=== PATIENT | male | born 1950 | race Caucasian/White ===

== ENCOUNTER 2019-05-18 14:02 | Emergency (ER) | payer MEDICARE, MEDICAID ==
[~2019-05-18] VITALS: Ht 177.8 cm; Wt 75.0 kg
[~2019-05-18 14:02] MED LIST: CARCD120C PO; DIAZ-351 PO; METO50TA17 PO
[2019-05-18 15:47] VITALS: BP 124/78
== END 2019-05-18 15:28 | disposition home or self-care (01) ==
LOC: ER 14:02
DX: S61.211A Laceration without foreign body of left index finger without damage to nail, initial encounter (principal); E78.00 Pure hypercholesterolemia, unspecified; I10 Essential (primary) hypertension; K21.9 Gastro-esophageal reflux disease without esophagitis; M19.90 Unspecified osteoarthritis, unspecified site; G89.29 Other chronic pain; Z98.890 Other specified postprocedural states; Z56.0 Unemployment, unspecified; Z79.899 Other long term (current) drug therapy; W26.8XXA Contact with other sharp object(s), not elsewhere classified, initial encounter; Y93.89 Activity, other specified; Y92.89 Other specified places as the place of occurrence of the external cause; Y99.8 Other external cause status
CPT/HCPCS: 73140; 99283

== ENCOUNTER 2020-02-15 19:29 | Emergency (ER) | payer MEDICARE, MEDICAID ==
[~2020-02-15] VITALS: Ht 177.8 cm; Wt 75.2 kg
[2020-02-15 20:21] LABS: ALANINE AMINOTRANSFERASE 45 U/L (12-78); ALBUMIN 3.8 G/DL (3.4-5.0); ALBUMIN/GLOBULIN RATIO 1.2 (1.1-1.5); ALKALINE PHOSPHATASE 79 IU/L (46-116); ANION GAP 12 (8-16); ASPARTATE AMINO TRANSFERASE 20 U/L (10-37); BILIRUBIN,TOTAL 0.2 MG/DL (0.1-1.0); BLOOD UREA NITROGEN 19 MG/DL (7-18); CALCIUM 8.9 MG/DL (8.5-10.1); CHLORIDE 109 MMOL/L (99-107); CREATININE 1.19 MG/DL (0.60-1.10); GLUCOSE 98 MG/DL (70-104); LIPASE 100 U/L (73-393); POTASSIUM 4.3 MMOL/L (3.5-5.1); SODIUM 143 MMOL/L (135-145); TOTAL CARBON DIOXIDE 21.8 MMOL/L (24-32); eGFR 61 ML/MIN
[2020-02-15 20:27] LABS: BASOPHILS % (AUTO) 0.6 % (0-1); EOSINOPHILS # (AUTO) 0.1 X10'3 (0-0.9); EOSINOPHILS % (AUTO) 1.7 % (0-6); HEMATOCRIT 44.7 % (42.0-52.0); HEMOGLOBIN 15.2 g/dl (14.0-17.9); LYMPHOCYTES # (AUTO) 1.4 X10'3 (1.1-4.8); LYMPHOCYTES % (AUTO) 17.7 % (21-51); MEAN CORPUSCULAR HEMOGLOBIN 32.6 PG (27.0-31.0); MEAN CORPUSCULAR HGB CONC 33.9 g/dL (33.0-36.5); MEAN CORPUSCULAR VOLUME 96.2 FL (78-98); MEAN PLATELET VOLUME 8.8 FL (7.4-10.4); MONOCYTES # (AUTO) 0.6 X10'3 (0-0.9); MONOCYTES % (AUTO) 8.2 % (2-12); NEUTROPHILS # (AUTO) 5.6 X10'3 (1.8-7.7); NEUTROPHILS % (AUTO) 71.8 % (42-75); PLATELET COUNT 339 X10'3 (140-440); RED BLOOD COUNT 4.65 X10'6 (4.70-6.10); WHITE BLOOD COUNT 7.7 X10'3 (4.5-11.0)
[2020-02-15 20:28] LABS: CLARITY,URINE CLEAR (Clear); COLOR,URINE YELLOW (Yellow); GLUCOSE, URINE NEGATIVE (Neg); KETONES,URINE NEGATIVE (Neg); LEUKOCYTE ESTERASE ,URINE NEGATIVE (Neg); NITRITES, URINE NEGATIVE (Neg); OCCULT BLOOD,URINE NEGATIVE (Neg); PH,URINE 5.5 (4.8-8.0); PROTEIN,URINE NEGATIVE (Neg); UROBILINOGEN,URINE 0.2 E.U/dL (0.2-1.0)
[2020-02-15 20:31] LABS: UA COLLECTION TYPE CLN CATCH MIDSTREAM
[2020-02-15] MEDS ORDERED: orphenadrine citrate 60mg/2ml inj. IM ONE (21:15)
[2020-02-15] MEDS ORDERED: ketorolac tromethamine 15mg/ml inj. IM ONE (21:15)
[2020-02-15] MEDS ORDERED: IBUP-1984 PO (21:18)
[2020-02-15] MEDS ORDERED: ORPH100T2 PO (21:18)
[2020-02-15 21:25] VITALS: BP 149/93
== END 2020-02-15 21:26 | disposition home or self-care (01) ==
LOC: ER 19:30
DX: M54.5 Low back pain (principal); R06.02 Shortness of breath; R10.9 Unspecified abdominal pain; E78.00 Pure hypercholesterolemia, unspecified; I10 Essential (primary) hypertension; K21.9 Gastro-esophageal reflux disease without esophagitis; M19.90 Unspecified osteoarthritis, unspecified site; G89.29 Other chronic pain; Z98.890 Other specified postprocedural states; Z56.0 Unemployment, unspecified; Z79.899 Other long term (current) drug therapy
CPT/HCPCS: 36415; 74176; 80053; 81003; 83690; 85025; 96372; 99284; J1885; J2360

== ENCOUNTER 2021-01-17 17:10 | Emergency (ER) | payer MEDICARE, MEDICAID ==
[~2021-01-17] VITALS: Ht 177.8 cm; Wt 72.7 kg
[~2021-01-17 17:10] MED LIST changes: +ORPH100T2 PO
[2021-01-17 17:39] VITALS: BP 143/87
[2021-01-17] MEDS ORDERED: AZIT-63 PO (19:33)
== END 2021-01-17 21:16 | disposition home or self-care (01) ==
LOC: ER 17:11
DX: B34.9 Viral infection, unspecified (principal); Z20.822 Contact with and (suspected) exposure to COVID-19; E78.00 Pure hypercholesterolemia, unspecified; I10 Essential (primary) hypertension; K21.9 Gastro-esophageal reflux disease without esophagitis; M19.90 Unspecified osteoarthritis, unspecified site; G89.29 Other chronic pain; Z98.890 Other specified postprocedural states; Z56.0 Unemployment, unspecified; Z79.2 Long term (current) use of antibiotics; Z79.899 Other long term (current) drug therapy
CPT/HCPCS: 36415; 71045; 99284; U0003; U0005

== ENCOUNTER 2021-05-18 16:38 | Emergency (ER) | payer MEDICARE, MEDICAID ==
[~2021-05-18] VITALS: Ht 177.8 cm; Wt 72.7 kg
[2021-05-18 17:01] VITALS: BP 121/84
[2021-05-18] MEDS ORDERED: HYDROcodone/acetaminophen 5mg/325mg tablet PO ONE (17:10)
[2021-05-18] MEDS ORDERED: ondansetron 4mg rapidly disintigrating tab PO ONE (17:10)
[2021-05-18] MEDS ORDERED: ONDA4TAB6 PO (18:02)
[2021-05-18] MEDS ORDERED: HYDR-3965 PO (18:02)
== END 2021-05-18 18:27 | disposition home or self-care (01) ==
LOC: ER 16:39
DX: S20.211A Contusion of right front wall of thorax, initial encounter (principal); E78.00 Pure hypercholesterolemia, unspecified; I10 Essential (primary) hypertension; K21.9 Gastro-esophageal reflux disease without esophagitis; M19.90 Unspecified osteoarthritis, unspecified site; G89.29 Other chronic pain; Z98.890 Other specified postprocedural states; Z56.0 Unemployment, unspecified; Z79.899 Other long term (current) drug therapy; W11.XXXA Fall on and from ladder, initial encounter; Y93.89 Activity, other specified; Y92.89 Other specified places as the place of occurrence of the external cause; Y99.8 Other external cause status
CPT/HCPCS: 71046; 99283

== ENCOUNTER 2021-06-04 16:37 | Emergency (ER) | payer MEDICARE, MEDICAID ==
[~2021-06-04] VITALS: Ht 177.8 cm; Wt 72.7 kg
[~2021-06-04 16:37] MED LIST changes: +ONDA4TAB6 PO
[2021-06-04 17:10] VITALS: BP 125/74
[2021-06-04] MEDS ORDERED: HYDROcodone/acetaminophen 5mg/325mg tablet PO ONE (17:40)
[2021-06-04] MEDS ORDERED: ondansetron 4mg rapidly disintigrating tab PO ONE (17:40)
[2021-06-04] MEDS ORDERED: ketorolac tromethamine 15mg/ml inj. IM ONE (17:40)
[2021-06-04] MEDS ORDERED: IBUP-1984 PO (18:07)
== END 2021-06-04 18:19 | disposition home or self-care (01) ==
LOC: ER 16:38
DX: M25.531 Pain in right wrist (principal); M25.512 Pain in left shoulder; E78.00 Pure hypercholesterolemia, unspecified; I10 Essential (primary) hypertension; K21.9 Gastro-esophageal reflux disease without esophagitis; M19.90 Unspecified osteoarthritis, unspecified site; G89.29 Other chronic pain; Z98.890 Other specified postprocedural states; Z56.0 Unemployment, unspecified; Z79.899 Other long term (current) drug therapy
CPT/HCPCS: 29125; 73030; 73110; 96372; 99284; J1885

== ENCOUNTER 2021-07-04 22:54 | Emergency (ER) | payer MEDICARE, MEDICAID ==
[~2021-07-04] VITALS: Ht 177.8 cm; Wt 72.6 kg
[2021-07-04 23:06] VITALS: BP 154/94
== END 2021-07-05 02:47 | disposition left against medical advice (07) ==
LOC: ER 07-05 02:34
DX: M25.531 Pain in right wrist (principal); Z53.21 Procedure and treatment not carried out due to patient leaving prior to being seen by health care provider

== ENCOUNTER 2021-09-02 14:46 | Emergency (ER) | payer MEDICARE, MEDICAID ==
[~2021-09-02] VITALS: Ht 177.8 cm; Wt 72.7 kg
[2021-09-02 15:27] VITALS: BP 99/74
== END 2021-09-02 22:33 | disposition left against medical advice (07) ==
LOC: ER 14:47
DX: M25.561 Pain in right knee (principal); Z53.21 Procedure and treatment not carried out due to patient leaving prior to being seen by health care provider
CPT/HCPCS: 73564

== ENCOUNTER 2024-07-15 18:11 | Emergency (ER) | payer MEDICARE, MEDICAID ==
[~2024-07-15] VITALS: Ht 177.8 cm; Wt 76.5 kg
[~2024-07-15 18:11] MED LIST changes: +AMLO5TAB16 PO; +ATOR10TA87 PO; +BACL-11 PO; -CARCD120C PO; -DIAZ-351 PO; +LABE100T8 PO; -METO50TA17 PO; +OMEP40CA21 PO; -ONDA4TAB6 PO; -ORPH100T2 PO
[2024-07-15 18:37] VITALS: BP 149/90; PULSE 88; RESP 16; TEMP 98.2; O2SAT 94
== END 2024-07-15 20:45 | disposition left against medical advice (07) ==
LOC: ER 18:11
DX: M79.89 Other specified soft tissue disorders (principal); R53.1 Weakness; Z53.21 Procedure and treatment not carried out due to patient leaving prior to being seen by health care provider

== ENCOUNTER 2024-09-29 16:28 | Emergency (ER) | payer MEDICARE, MEDICAID ==
[~2024-09-29] VITALS: Ht 177.8 cm; Wt 74.2 kg
[2024-09-29] MEDS ORDERED: ERYT1OIN6 EACHEYE (17:10)
[2024-09-29 17:51] VITALS: BP 154/98; PULSE 76; RESP 16; TEMP 97.7; O2SAT 99
== END 2024-09-29 17:53 | disposition home or self-care (01) ==
LOC: ER 16:29
DX: H10.33 Unspecified acute conjunctivitis, bilateral (principal); H61.23 Impacted cerumen, bilateral; I10 Essential (primary) hypertension; E78.00 Pure hypercholesterolemia, unspecified; K21.9 Gastro-esophageal reflux disease without esophagitis; I25.10 Atherosclerotic heart disease of native coronary artery without angina pectoris; M19.90 Unspecified osteoarthritis, unspecified site; G89.29 Other chronic pain; M54.9 Dorsalgia, unspecified; Z56.0 Unemployment, unspecified; Z79.899 Other long term (current) drug therapy; Z98.890 Other specified postprocedural states
CPT/HCPCS: 99283

== ENCOUNTER 2025-01-07 16:36 | Emergency (ER) | payer MEDICARE, MEDICAID ==
[~2025-01-07] VITALS: Ht 172.7 cm; Wt 74.0 kg
[2025-01-07 16:48] VITALS: BP 141/87; PULSE 94; RESP 18; TEMP 98.5; O2SAT 94
[2025-01-07] MEDS ORDERED: CELE-148 PO (17:55)
--- NOTE | 2025-01-07 17:56 | Physician Documentation ---
History of Present Illness ~ Chief Complaint: Shoulder pain Stated Complaint: L SHOULDER PAIN Time Seen by MD: 17:32 Primary Medical Doctor: Humberto Ashraf M.D. HPI This is a 74-year-old male with history of chronic left shoulder pain, patient reports that he was told last year that he would require a shoulder replacement, patient reports the pain has been getting worse over the past year and today he could not take it anymore so he called 911. Patient received 1 g of IV Tylenol and 15 mg of IV Toradol prior to arrival, patient reports that arms only painful when moving his arm now. Patient reports no other acute symptoms or concerns. Tetanus within 5 years?: Yes Medication Reconciliation Allergies: Coded Allergies: No Known Drug Allergies (Verified Allergy, Unknown, 07/15/24) Scheduled Amlodipine Besylate (Amlodipine Besylate), 1 TAB PO BID, (Reported) Atorvastatin Calcium* (Lipitor*), 1 TABLET PO DAILY, (Reported) Baclofen (Baclofen), 1 TAB PO Q8H Celecoxib (Celecoxib), 1 CAP PO Q12H Labetalol Hcl (Labetalol Hcl), 200 TAB PO BID Omeprazole (Prilosec), 1 CAP PO DAILY, (Reported) Past Medical History Past Medical History: Headache, Coronary Artery Disease, High Cholesterol, Hypertension, Bronchitis, GERD, Arthritis, Chronic Pain, Chronic Back Pain Past Surgical History: abdominal surgery, angioplasty, orthopedic surgeries, other Other Past Surgical History: prostatectomy, lumbar surgery. Alcohol Use: None Drug Use: none Lives with: S/O Lives In: Home Occupation: unemployed Review of Systems ROS Left shoulder pain as stated above in the HPI, otherwise all systems are reviewed and negative. Physical Exam Vital Signs: Temperature: 98.5, Source: Temporal, Heart Rate: 94, Respiratory Rate: 18, BP: 141/87, Pulse Oximetry: 94, Weight: 74.000 Oxygen Flow Rate: 0 Physical Exam VITALS: Reviewed and as above. GENERAL: Alert, nontoxic appearing, no apparent distress. RESPIRATORY: No increased work of breathing, no respiratory distress, speaking in full clear sentences MUSCULOSKELETAL: Tender to palpation posteriorly and anteriorly, range of motion limited due to pain. Progress Results/Orders Results/Orders Vital Signs 01/07/25 16:48 Temp 98.5 Pulse 94 Resp 18 B/P (MAP) 141/87 Pulse Ox 94 O2 Flow Rate 0 Medical Decision Making Findings This 74-year-old with history of chronic left shoulder pain presented with left shoulder pain, as patient reports no change in nature shoulder pain and no recent injuries imaging was not indicated, of no patient reported he has been advised that he requires a shoulder replacement for the affected shoulder. Remainder of physical exam was benign and his limb was neurovascularly intact distal to injury. Patient was medicated for pain by EMS prior to arrival which he reported decreased pain at rest though still having pain with range of motion. Patient was provided a sling for comfort and a prescription for Celebrex for chronic shoulder pain in advised to follow up with his primary care provider to follow through on scheduling shoulder replacement surgery for his chronic shoulder pain. Patient was appropriate for outpatient follow up and verbalized understanding of home care instructions and return to care precautions. Differential Dx:Considerations: Include: AC separation, arthritis, Fracture: Humerus, Fracture: Scapula, Fracture: Clavicle, Neurovascular Injury, Rotator cuff injury, Sprain Departure Time of Disposition: 17:52 Disposition: 01 HOME / SELF CARE / HOMELESS Impression: Primary Impression: Shoulder pain Qualified Codes: M25.512 - Pain in left shoulder; G89.29 - Other chronic pain Condition: Improved Discharge Instructions: Shoulder Pain Additional Instructions: Please take the Celebrex daily for pain, this medication with other NSAIDs such as aspirin, ibuprofen, or naproxen, also take this medication with food to decrease her chance systemic upset. You may wear the shoulder sling as needed for pain though you should attempt to mobilize your arm/shoulder several times a day to decrease the chance of developing a frozen shoulder. You will need to follow up with a primary care provider for continued management of this chronic pain and for referral for the shoulder replacement you have already been advised you require. Please follow up with a primary care provider in the next few days. Please return to the emergency department for any new or worsening concerning symptoms. Referrals: NO PRIMARY CARE PROVIDER (PCP) Prescriptions Celecoxib (Celecoxib) 100 Mg Capsule 1 CAP PO Q12H for 30 Days, #60 CAP 0 Refills Prov: LINDA PARKER 01/07/25 Education Educated: Patient Educated regarding: diagnosis, treatment, prognosis, need for follow up Signature Scribe Signature: No scribe Attestation: The note accurately reflects work and decisions made by me.LIZBET Valencia 01/08/25 01:54 LINDA PARKER January 07, 2025 17:56
== END 2025-01-07 18:20 | disposition home or self-care (01) ==
LOC: ER 16:37
DX: M25.512 Pain in left shoulder (principal); E78.00 Pure hypercholesterolemia, unspecified; I11.9 Hypertensive heart disease without heart failure; I25.10 Atherosclerotic heart disease of native coronary artery without angina pectoris; K21.9 Gastro-esophageal reflux disease without esophagitis; M19.90 Unspecified osteoarthritis, unspecified site; Z90.79 Acquired absence of other genital organ(s)
CPT/HCPCS: 99284; A4565